=== PATIENT | female | born 1955 | race Caucasian/White ===

== ENCOUNTER 2017-07-30 17:15 | Observation (INO) | payer MEDICARE, SELFPAY ==
--- NOTE | 2017-07-30 17:38 | XR_ITS ---
XR chest portable CLINICAL INDICATION: Weakness, ischemia ITS.REASON: bilateral LE ischemia (medical clearance) ORDERING PHYSICIAN: Dougie Russell MD PATIENT AGE: 61 years COMPARISON: None FINDINGS: Unremarkable cardiovascular structures. There are minimal atelectatic changes in the right lung base. The lungs are otherwise clear. No acute bony anomalies. IMPRESSION: Minimal right basilar atelectasis or fibrosis otherwise negative
[2017-07-30 20:00] VITALS: PULSE 80
--- NOTE | 2017-07-30 22:11 | PC.NURSE ---
Aly Talbot RN notified of O2 sat @ 73%
[2017-07-31] VITALS (29 sets, daily range): BP systolic 123–184; BP diastolic 41–98; PULSE 80–100; RESP 12–20; TEMP 36.4–37.1; O2SAT 96–100; BMI 16.2
[2017-07-31 01:58] LABS: Activated Partial Thrombo Time 39.7 seconds (23.6-34.0)
--- NOTE | 2017-07-31 05:23 | PC.NURSE ---
ROXANN TRONCOSO PHONED AT 0200 WITH ORDER TO INCREASE DRIP TO 18ml/hr
--- NOTE | 2017-07-31 05:36 | PC.NURSE ---
MAKES NEEDS KNOWN, IS NOT OVERLY COOPERATIVE. REFUSES TO WEAR BP CUFF, REFUSED BATH, DID ALLOW TO BE CLIPPED IN PREPARATION FOR AMBAR CONSULT THIS AM WELL BEING NPO. RIGHT FOOT DORSALIS PEDIS PULSE NOT DETECTED BY DOPPLER, POSTERIOR TIBIAL PULSE IS AUDIBLE. LEFT FOOT DORSALIS PEDIS PULSE COULD BE FOUND BUT POSTERIOR DORSALIS PEDIS MORE AUDIBLE. PT C/O OF GREAT PAIN IN RIGHT FOOT WITH TOUCH OR MOVEMENT. DORSAL OF RIGHT FOOT LEADING UP TO GREAT TOE IS RED AND DARKENED COMPARED TO LEFT FOOT. REQUESTED PAIN PILL APPROX 0400 R/T PAIN IN MULTIPLE AREAS. REMAINED SAFE THIS SHIFT.
--- NOTE | 2017-07-31 07:08 | PC.NURSE ---
Not interested in pt portal. Brochure given
[2017-07-31 07:14] LABS: Basophils % 0.1 % (0.1-2.0); Eosinophils # 0.1 K/mm3 (0.0-0.4); Eosinophils % 0.7 % (0.1-12.0); Hematocrit 38.4 % (37.0-47.0); Hemoglobin 11.6 g/dL (12.2-16.2); Lymphocytes # 1.2 K/mm3 (0.7-4.5); Lymphocytes % 7.7 K/mm3 (10-50); Mean Corpuscular HGB Conc 30.2 g/dL (31.8-35.4); Mean Corpuscular Hemoglobin 31.8 pg (27.0-31.2); Mean Corpuscular Volume 105.2 fl (81-99); Mean Platelet Volume 9.5 fl (7.4-10.4); Monocytes # 0.7 K/mm3 (0.1-1.0); Monocytes % 4.4 % (1.7-9.3); Neutrophils # 14.1 K/mm3 (1.8-7.8); Platelet Count 296 K/mm3 (142-424); Red Blood Count 3.65 M/mm3 (4.20-5.40); Red Cell Distribution Width 13.3 % (11.5-17.5); White Blood Count 16.2 K/mm3 (4.8-10.8)
[2017-07-31 07:18] LABS: INR 0.95 (0.9-1.1); Prothrombin Time 10.3 seconds (9.4-11.8)
[2017-07-31 07:26] LABS: MANUAL DIFFERENTIAL MANUAL DIFFERENTIAL (MANUAL DIFF)
[2017-07-31 07:31] LABS: Alanine Aminotransferase 31 U/L (12-78); Albumin/Globulin Ratio 0.4 (1.1-1.8); Alkaline Phosphatase 209 U/L (46-116); Anion Gap 12.2 mEq/L (5-15); Aspartate Amino Transferase 23 U/L (15-37); Bilirubin,Total 0.1 mg/dL (0.2-1.0); Blood Urea Nitrogen 19 mg/dL (7-18); Calcium 10.1 mg/dL (8.5-10.1); Carbon Dioxide 23 mmol/L (21.0-32.0); Chloride 107 mmol/L (98-107); Creatinine Clearance Estimated 34 mg/ml (0-300); Creatinine,Serum 1.21 mg/dL (0.55-1.02); Estimated Glomerular Filt Rate 45 ml/min (>60); GFR (African American) 55 ML/MIN (>60); Globulin 4.6 gm/dl (1.3-3.2); Glucose 212 mg/dL (74-106); Potassium 3.2 mmoL/L (3.5-5.1); Sodium 139 mmol/L (136-145); Total Protein,Serum 6.6 gm/dL (6.4-8.2)
--- NOTE | 2017-07-31 09:00 | IR_ITS ---
PROCEDURE: 1. Left femoral arterial access 2. Catheter placement left femoral artery 3. Catheter placement in the abdominal aorta 4. Abdominal aortography 5. Angioplasty of the abdominal aorta 6. Angioplasty of the left common iliac artery 7. Angioplasty of the left external iliac artery 8. Stent deployment of the left external iliac artery and left common femoral artery INDICATION: 1. Limb threatening ischemia 2. Peripheral artery disease Informed consent was obtained prior to the procedure. COMPLICATIONS: None ESTIMATED BLOOD LOSS: Blood loss less than 10 cc. TECHNIQUE:1% lidocaine used to anesthetize the left femoral groin. The left femoral artery was accessed via the Seldinger technique. An advantage wire was used to push through the chronic occlusion of the proximal left femoral artery extending through the external iliac artery left common iliac artery and abdominal aorta. The pigtail catheter was advanced over the wire and abdominal aortography was performed. Following this 4000 units of heparin was administered intravenously. A 6 mm x 100 mm balloon was used to dilate the left external iliac artery pushed into the common iliac artery and then into the abdominal aorta. An additional balloon ruptured. A 6 mm x 40 mm balloon ruptured in the abdominal aorta at 12 milana. An additional 6 mm x 120 mm balloon was advanced proximal to the stents into the suprarenal abdominal aorta and inflated at 15 milana. The balloon was brought back into the left common and left external iliac artery. Repeat angiography demonstrated the severe stenosis distal to the left external iliac artery stent extending into the proximal portion of the left common femoral artery. A 4 mm x 30 mm bare-metal stent was deployed at 20 milana reducing the stenosis to 0%. This actually restored flow down the SFA and profunda femoris artery. The thrombus was aspirated from the left groin. The end the procedure the patient transferred the postop holding area in stable condition. Two ACTs were obtained during the procedure per nursing. ANGIOGRAPHIC RESULTS: The suprarenal abdominal aorta is normal. Stents are present from the infrarenal abdominal aorta extending into the bilateral common iliac arteries. The abdominal aortic stents appear to be mostly patent except an eccentric lesion on the left side of the infrarenal abdominal aorta. The right common iliac artery has an ostial proximal 70-80% stenosis and then opened into the main body of the common iliac artery. The right internal iliac artery is patent however the entire right external iliac artery and entire right common femoral artery is occluded. The entire left common external iliac artery is occluded within the stent. This occlusion extends into the proximal portion of the left common femoral artery. After the procedure the left common external iliac artery was widely patent as was the left common femoral artery extending into the proximal left SFA and left profunda femoris Impression: 1. Critical coronary disease as described above 2. Successful revascularization of the abdominal aorta the left common and left external iliac artery and the left common femoral artery. 100% occlusion reduced to 0% with multiple angioplasty procedures and 1 bare-metal stent Plan: 1. Tobacco cessation 2. Aspirin Plavix 3. Risk factor modification A should should be referred for hospice for pain management or perhaps to the pain management clinic. Patient is a small cachectic lady with limited life expectancy. Her left leg appear to be the most painful in this procedure produced excellent angiographic and hopefully clinical results
--- NOTE | 2017-07-31 09:11 | HMH.HP ---
*Admission Date: 07/30/17 *Chief complaint: chest pain *History of present illness: this wf was seen in the card clinic yesterday with chest pain and lower ext pain with dec pulse in lower ext and claudication and dec ambulation with rest pain and sx of art insuff lower ext - she has had pvd in past with stenting and continues to use tob - she was seen by card - no recent falls and no syncope [facility] History I have reviewed the patient's past medical history: Yes Medical History: Reports:: Chronic Obstructive Pulmonary Disease (COPD), Diabetes Mellitus Type 2, Gastroesophageal Reflux Disease Denies:: Cancer, Diabetes Mellitus Type 1, MRSA Other Medical History: Reports: Arthritis, Fibromyalgia, Thyroid Disease Other Surgeries: Yes: Angioplasty, Colostomy, Hysterectomy-Total, Other Amputation: No Fractures: No - *Social History Educational Level: Attended High School Smoking Status: Current every day smoker Tobacco Type: cigarettes # Packs/Day (cigarettes): 2 #Yrs smoked (if former smoker): 50 Alcohol Intake: never Substance Use Type: denies use Occupational Status: disabled Housing: house Household Members: none - Psychiatric History Expresses thoughts of harming self/others: None Suicide Plan Description: No Plan *Family Hx:: Diabetes Review of Systems - Review of Systems Review of systems:: pertinent systems reviewed and negative unless documented below - Constitutional Reports lack of energy, Reports weight loss - Eyes Denies change in vision Comments: s/p graves disease - ENT Denies nosebleed - *Cardiovascular Reports chest pain with activity - *Respiratory Reports shortness of breath, Denies cough - *Gastrointestinal Denies abdominal pain - *Neurologic Reports restless legs, Denies seizure-like activity - Psychiatric Denies thoughts of hurting/killing others - Endocrine Comments: has graves Meds Home Medications Medication Instructions Recorded Confirmed Type albuterol sulfate 0.63 mg/3 mL 0.63 mg INHALATION TID PRN ml 07/30/17 07/30/17 History solution for nebulization aripiprazole 2 mg tablet 2 mg PO QDAY 07/30/17 07/30/17 History gabapentin 300 mg capsule 300 mg PO TID 07/30/17 07/30/17 History levothyroxine 88 mcg tablet 88 mcg PO DAILY tab 07/30/17 07/30/17 History linagliptin 5 mg tablet 5 mg PO QDAY 07/30/17 07/30/17 History oxycodone-acetaminophen 10 mg-325 1 tab PO Q6H PRN tab 07/30/17 07/30/17 History mg tablet pantoprazole 40 mg tablet,delayed 40 mg PO QAM 07/30/17 07/30/17 History release promethazine 25 mg tablet 25 mg PO Q6H PRN 07/30/17 07/30/17 History Allergies Allergy/AdvReac Type Severity Reaction Status Date / Time morphine Allergy Mild Verified 07/30/17 08:07 Sulfa (Sulfonamide Allergy Unknown Verified 07/30/17 08:07 Antibiotics) codeine AdvReac Mild Makes her Verified 07/30/17 19:37 Hot pcn Allergy Unknown Uncoded 07/30/17 08:07 Exam Vital signs and Labs for Last 24 Hours: Temp Pulse 97.7 F 100 H 07/31/17 00:00 07/31/17 04:49 Short CBC 07/31/17 Range/Units 06:15 WBC 16.2 H (4.8-10.8) K/mm3 Hgb 11.6 L (12.2-16.2) g/dL Hct 38.4 (37.0-47.0) % Plt Count 296 (142-424) K/mm3 BMP 07/31/17 06:15 Sodium 139 Potassium 3.2 L Chloride 107 Carbon Dioxide 23 BUN 19 H Creatinine 1.21 H Glucose 212 H Calcium 10.1 Liver Function 07/31/17 Range/Units 06:15 Total Bilirubin 0.1 L (0.2-1.0) mg/dL AST 23 (15-37) U/L ALT 31 (12-78) U/L Alkaline Phosphatase 209 H (46-116) U/L Albumin 2.0 L (3.4-5.0) gm/dL I & O for Last 24 hours: Intake & Output 07/28/17 07/29/17 07/30/17 07/31/17 11:59 11:59 11:59 11:59 Intake Total 204 / 204 Output Total 1050 / 1050 Balance -846 / -846 no acute distress, thin - *Routine HEENT Exam Head: Present: normocephalic Eye: Present: PERRL, exophthalmos ENT: Present: mucous membranes dry - *Routin
--- NOTE | 2017-07-31 09:15 | P.HP_ITS ---
*Admission Date: 07/30/17 *Chief complaint: chest pain *History of present illness: this wf was seen in the card clinic yesterday with chest pain and lower ext pain with dec pulse in lower ext and claudication and dec ambulation with rest pain and sx of art insuff lower ext - she has had pvd in past with stenting and continues to use tob - she was seen by card - no recent falls and no syncope [facility] History I have reviewed the patient's past medical history: Yes Medical History: Reports:: Chronic Obstructive Pulmonary Disease (COPD), Diabetes Mellitus Type 2, Gastroesophageal Reflux Disease Denies:: Cancer, Diabetes Mellitus Type 1, MRSA Other Medical History: Reports: Arthritis, Fibromyalgia, Thyroid Disease Other Surgeries: Yes: Angioplasty, Colostomy, Hysterectomy-Total, Other Amputation: No Fractures: No - *Social History Educational Level: Attended High School Smoking Status: Current every day smoker Tobacco Type: cigarettes # Packs/Day (cigarettes): 2 #Yrs smoked (if former smoker): 50 Alcohol Intake: never Substance Use Type: denies use Occupational Status: disabled Housing: house Household Members: none - Psychiatric History Expresses thoughts of harming self/others: None Suicide Plan Description: No Plan *Family Hx:: Diabetes Review of Systems - Review of Systems Review of systems:: pertinent systems reviewed and negative unless documented below - Constitutional Reports lack of energy, Reports weight loss - Eyes Denies change in vision Comments: s/p graves disease - ENT Denies nosebleed - *Cardiovascular Reports chest pain with activity - *Respiratory Reports shortness of breath, Denies cough - *Gastrointestinal Denies abdominal pain - *Neurologic Reports restless legs, Denies seizure-like activity - Psychiatric Denies thoughts of hurting/killing others - Endocrine Comments: has graves Meds Home Medications Medication Instructions Recorded Confirmed Type albuterol sulfate 0.63 mg/3 mL 0.63 mg INHALATION TID PRN ml 07/30/17 07/30/17 History solution for nebulization aripiprazole 2 mg tablet 2 mg PO QDAY 07/30/17 07/30/17 History gabapentin 300 mg capsule 300 mg PO TID 07/30/17 07/30/17 History levothyroxine 88 mcg tablet 88 mcg PO DAILY tab 07/30/17 07/30/17 History linagliptin 5 mg tablet 5 mg PO QDAY 07/30/17 07/30/17 History oxycodone-acetaminophen 10 mg-325 1 tab PO Q6H PRN tab 07/30/17 07/30/17 History mg tablet pantoprazole 40 mg tablet,delayed 40 mg PO QAM 07/30/17 07/30/17 History release promethazine 25 mg tablet 25 mg PO Q6H PRN 07/30/17 07/30/17 History Allergies Allergy/AdvReac Type Severity Reaction Status Date / Time morphine Allergy Mild Verified 07/30/17 08:07 Sulfa (Sulfonamide Allergy Unknown Verified 07/30/17 08:07 Antibiotics) codeine AdvReac Mild Makes her Verified 07/30/17 19:37 Hot pcn Allergy Unknown Uncoded 07/30/17 08:07 Exam Vital signs and Labs for Last 24 Hours: Temp Pulse 97.7 F 100 H 07/31/17 00:00 07/31/17 04:49 Short CBC 07/31/17 Range/Units 06:15 WBC 16.2 H (4.8-10.8) K/mm3 Hgb 11.6 L (12.2-16.2) g/dL Hct 38.4 (37.0-47.0) % Plt Count 296 (142-424) K/mm3 BMP
[2017-07-31 09:29] LABS: Corrected White Blood Count 15.1 K/mm3 (4.8-10.8); Eosinophils % 2 % (0-3); Lymphocytes % 82 % (10-50); Monocytes % 4 % (2-9); Neutrophils % 12 % (42-76); Nucleated Red Blood Cells 7; Total Cells Counted 100
[2017-07-31 09:48] LABS: Macrocytosis 1+; Platelet Estimate Normal
--- NOTE | 2017-07-31 10:52 | SUR.PREOP ---
Pt arrived to [facility]lab [facility] in stable condition @ 1045 with cathlab staff via bed. cm shows nsr with vs 166/78, 95% SpO2, HR 95 and rr 24. additional IV started with 20g left FA without difficulty.
--- NOTE | 2017-07-31 16:10 | HMH.PHAVTE ---
[facility] Pharmacy VTE Monitoring - Patient Demographics Admission date: 07/30/17 Report Date: 07/31/17 Time: 16:10 Allergies/Adverse Reactions: morphine Allergy (Mild, Verified 07/30/17 08:07) Sulfa (Sulfonamide Antibiotics) Allergy (Unknown, Verified 07/30/17 08:07) codeine Adverse Reaction (Mild, Verified 07/30/17 19:37) Makes her Hot pcn Allergy (Unknown, Uncoded 07/30/17 08:07) Height: 1.65 m Weight: 44.197 kg Patient Problems: Current Active Problems Graves' disease with exophthalmos (Chronic) - VTE Risk Labs: VTE Related Lab Results Hgb 11.6 g/dL (12.2-16.2) L 07/31/17 06:15 Hct 38.4 % (37.0-47.0) 07/31/17 06:15 Plt Count 296 K/mm3 (142-424) 07/31/17 06:15 PT 10.3 seconds (9.4-11.8) 07/31/17 06:15 INR 0.95 (0.9-1.1) 07/31/17 06:15 APTT 39.7 seconds (23.6-34.0) H 07/31/17 01:30 BUN 19 mg/dL (7-18) H 07/31/17 06:15 Creatinine 1.21 mg/dL (0.55-1.02) H 07/31/17 06:15 Estimated Creat Clear 34 mg/ml (0-300) 07/31/17 06:15 Was VTE Risk Assessment Performed: Yes VTE Risk Level: Moderate Risk Clinical Trial Participant: No - Prophylaxis Types of VTE Prophylaxis: TEDS Knee High
[2017-07-31 16:15] LABS: CATHL Activated Clotting Time 207 SEC (74-125)
[2017-07-31 16:17] LABS: CATHL Activated Clotting Time 248 SEC (74-125)
[2017-07-31 16:18] LABS: CATHL Activated Clotting Time 116 SEC (74-125)
--- NOTE | 2017-07-31 16:42 | SUR.PHASEII ---
report to remi pan , patient transported to icu, vss at this time, no c/o pain.
[2017-08-01] VITALS: BP 153/52; PULSE 75; PULSE 91; RESP 18; TEMP 36.6; O2SAT 97
[2017-08-01 04:00] VITALS: PULSE 85
[2017-08-01 05:48] VITALS: BP 142/63; PULSE 95; RESP 16; TEMP 36.9; O2SAT 96
[2017-08-01 07:00] LABS: Hematocrit 35.3 % (37.0-47.0); Hemoglobin 10.5 g/dL (12.2-16.2)
[2017-08-01 08:00] VITALS: PULSE 70; PULSE 80
[2017-08-01 08:01] LABS: POC Glucose,Bedside 310 mg/dL
[2017-08-01 08:10] LABS: Creatinine Clearance Estimated 42 mg/ml (0-300); Creatinine,Serum 0.94 mg/dL (0.55-1.02); Estimated Glomerular Filt Rate > 60 ml/min (>60); GFR (African American) > 60 ML/MIN (>60)
[2017-08-01 08:12] VITALS: BP 167/73; PULSE 100; RESP 20; TEMP 36.8; O2SAT 96
--- NOTE | 2017-08-01 08:26 | HMH.ACPN ---
Internal Medicine - PN: Subj *Date: 08/01/17 *Time: 08:26 Exam Vital signs and Labs for Last 24 Hours: Temp Pulse Resp BP Pulse Ox 98.2 F 100 H 20 167/73 96 08/01/17 08:12 08/01/17 08:12 08/01/17 08:12 08/01/17 08:12 08/01/17 08:12 Short CBC 08/01/17 Range/Units 06:30 Hgb 10.5 L (12.2-16.2) g/dL Hct 35.3 L (37.0-47.0) % BMP 08/01/17 06:30 Creatinine 0.94 D I & O for Last 24 hours: Intake & Output 07/29/17 07/30/17 07/31/17 08/01/17 11:59 11:59 11:59 11:59 Intake Total 204 / 204 1000 / 1000 Output Total 1050 / 1050 4100 / 4100 Balance -846 / -846 -3100 / -3100 no acute distress - *Routine HEENT Exam Head: Present: normocephalic Eye: Present: PERRL ENT: Present: mucous membranes moist - *Routine Neck Exam Present: supple, full ROM - Routine Chest/Breast/Axilla Exam Chest wall: Present: pacemaker - *Routine Respiratory Exam Absent: accessory muscle use - *Routine Cardiovascular Exam Present: RRR, Normal S1, Normal S2 - *Routine Abdominal Exam Present: soft, normoactive bowel sounds - *Routine Extremities Exam Present: full ROM, tenderness, extremity cold to touch Comments: left toes blue and blanchable - Routine Back/Spine/Pelvis Exam Back/Spine: Present: full ROM - *Routine Skin Exam Present: intact, warm - *Routine Neurological Exam Present: alert, oriented X3 - Routine Psychiatric Exam Present: normal affect Assessment and Plan (1) Graves' disease with exophthalmos Current visit: Yes Status: Chronic Category: Medical Code(s): E05.00 - Thyrotoxicosis with diffuse goiter without thyrotoxic crisis or storm (2) Critical lower limb ischemia Problem details: bilateral lower limbs are purple in color and cool to touch, feet are tender with touch and pt states that she is a lot of pain for past week will admit pt for critical bilateral ischemic foot and start heparin drip today and plan for Heart cath tomorrow had a long discussion with pt and family about the need for admission and the risk and benefits of procedure and pt verbalize understanding and willing to proceed. she states that she was seen at [facility] and she was inst to stop her blood thinners. Current visit: No Status: Acute Category: Medical Code(s): I99.8 - Other disorder of circulatory system (3) Carotid artery stenosis Current visit: No Status: Chronic Qualifiers: Laterality: bilateral Qualified Code(s): I65.23 - Occlusion and stenosis of bilateral carotid arteries Category: Medical Code(s): I65.29 - Occlusion and stenosis of unspecified carotid artery (4) Diabetes Current visit: No Status: Chronic Qualifiers: Diabetes mellitus type: type 2 Category: Medical Code(s): E11.9 - Type 2 diabetes mellitus without complications (5) HHD (hypertensive heart disease) Current visit: No Status: Chronic Category: Medical Code(s): I11.9 - Hypertensive heart disease without heart failure (6) PAD (peripheral artery disease) Problem details: pt is in wheelchair today, and states that she has been in bed for past week Current visit: No Status: Chronic Category: Medical Code(s): I73.9 - Peripheral vascular disease, unspecified (7) Tobacco abuse Current visit: No Status: Chronic Category: Medical Code(s): Z72.0 - Tobacco use - Assessment and plan all Dx Assessment and Plan for all problems:: contiune care wait for cardiology for dc plan
--- NOTE | 2017-08-01 08:36 | HMH.CARDPN2 ---
Subjective PN (PG) Date: 08/01/17 Time: 08:30 Principal diagnosis: PAD Interval history: Pt with complaint of pain all over. Wants more pain meds. Relates she will keep smoking since, that's all I got left. No further intervention of PAD possible. Recommend hospice for pain control. PN Exam ([facility] Owned) Vital signs: Temp Pulse Resp BP Pulse Ox 98.2 F 100 H 20 167/73 96 08/01/17 08:12 08/01/17 08:12 08/01/17 08:12 08/01/17 08:12 08/01/17 08:12 - Constitutional mild distress, thin, cachectic - Routine Respiratory Exam Present: diminished air movement - Routine Cardiovascular Exam Present: RRR - Routine Extremities Exam Comments: Legs mottled. Right warmer than left with weak but palpable pulses. Pt winces when touching legs. No edema. - Routine Neurological Exam Present: alert, oriented X3 A/P Progress Note ([facility] Owned) (1) Critical lower limb ischemia Problem details: bilateral lower limbs are purple in color and cool to touch, feet are tender with touch and pt states that she is a lot of pain for past week will admit pt for critical bilateral ischemic foot and start heparin drip today and plan for Heart cath tomorrow had a long discussion with pt and family about the need for admission and the risk and benefits of procedure and pt verbalize understanding and willing to proceed. she states that she was seen at [facility] and she was inst to stop her blood thinners. Status: Acute Assessment and plan: Unable to open right leg but some improved blood flow with intervention of aorta. Some intervention of the left leg with improved blood flow. No possible further intervention. Recommend hospice for pain control (2) PAD (peripheral artery disease) Problem details: pt is in wheelchair today, and states that she has been in bed for past week Status: Chronic (3) Tobacco abuse Status: Chronic (4) Graves' disease with exophthalmos Status: Chronic (5) Carotid artery stenosis Status: Chronic (6) Diabetes Status: Chronic (7) HHD (hypertensive heart disease) Status: Chronic - Time Spent With Patient less than 15 minutes
--- NOTE | 2017-08-01 08:39 | P.PN_ITS ---
Subjective PN (PG) Date: 08/01/17 Time: 08:30 Principal diagnosis: PAD Interval history: Pt with complaint of pain all over. Wants more pain meds. Relates she will keep smoking since, that's all I got left. No further intervention of PAD possible. Recommend hospice for pain control. PN Exam ([facility] Owned) Vital signs: Temp Pulse Resp BP Pulse Ox 98.2 F 100 H 20 167/73 96 08/01/17 08:12 08/01/17 08:12 08/01/17 08:12 08/01/17 08:12 08/01/17 08:12 - Constitutional mild distress, thin, cachectic - Routine Respiratory Exam Present: diminished air movement - Routine Cardiovascular Exam Present: RRR - Routine Extremities Exam Comments: Legs mottled. Right warmer than left with weak but palpable pulses. Pt winces when touching legs. No edema. - Routine Neurological Exam Present: alert, oriented X3 A/P Progress Note ([facility] Owned) (1) Critical lower limb ischemia Problem details: bilateral lower limbs are purple in color and cool to touch, feet are tender with touch and pt states that she is a lot of pain for past week will admit pt for critical bilateral ischemic foot and start heparin drip today and plan for Heart cath tomorrow had a long discussion with pt and family about the need for admission and the risk and benefits of procedure and pt verbalize understanding and willing to proceed. she states that she was seen at [facility] and she was inst to stop her blood thinners. Status: Acute Assessment and plan: Unable to open right leg but some improved blood flow with intervention of aorta. Some intervention of the left leg with improved blood flow. No possible further intervention. Recommend hospice for pain control (2) PAD (peripheral artery disease) Problem details: pt is in wheelchair today, and states that she has been in bed for past week Status: Chronic (3) Tobacco abuse Status: Chronic (4) Graves' disease with exophthalmos Status: Chronic (5) Carotid artery stenosis Status: Chronic (6) Diabetes Status: Chronic (7) HHD (hypertensive heart disease) Status: Chronic - Time Spent With Patient less than 15 minutes
[2017-08-01 12:24] VITALS: BP 111/93; PULSE 88; RESP 18; TEMP 35.9; O2SAT 98
--- NOTE | 2017-08-01 12:42 | HMH.DCSUM ---
General - General Admission date: 07/30/17 Discharge date: 08/01/17 HPI HPI: this wf was seen in the card clinic yesterday with chest pain and lower ext pain with dec pulse in lower ext and claudication and dec ambulation with rest pain and sx of art insuff lower ext - she has had pvd in past with stenting and continues to use tob - she was seen by card - no recent falls and no syncope Objective Vital signs: Temp Pulse Resp BP Pulse Ox 96.6 F L 88 18 111/93 98 08/01/17 12:24 08/01/17 12:24 08/01/17 12:24 08/01/17 12:24 08/01/17 12:24 no acute distress - *Routine HEENT Exam Head: Present: normocephalic Eye: Present: PERRL ENT: Present: mucous membranes moist - *Routine Neck Exam Present: supple, full ROM - *Routine Respiratory Exam Present: CTA bilaterally - *Routine Cardiovascular Exam Present: RRR - *Routine Abdominal Exam Present: soft, normoactive bowel sounds - *Routine Skin Exam Comments: left toes blue in color - Detailed Lower Extremity Exam Leg image: 1 - blue abd blachable 2 - blue and blanchable slight better than left Hospital Course Hospital Course: Unable to open right leg but some improved blood flow with intervention of aorta. Some intervention of the left leg with improved blood flow. No possible further intervention. Recommend hospice for pain control.Pt with complaints of pain all over. Wants more pain meds. Relates she will keep smoking since, that's all I got left. No further intervention of PAD possible. Recommend hospice for pain control. Results Labs on day of discharge: Labs from last 24 hours 08/01/17 08/01/17 07/31/17 06:30 06:30 14:24 Hgb 10.5 L Hct 35.3 L Activated Clotting Time 116 D Creatinine 0.94 D Estimated Creat Clear 42 Estimated GFR > 60 Est GFR ( Amer) > 60 POC Glucose 07/31/17 07/31/17 07/31/17 14:08 13:50 01:36 Hgb Hct Activated Clotting Time 248 H* 207 H* Creatinine Estimated Creat Clear Estimated GFR Est GFR ( Amer) POC Glucose 310 DS: Diagnosis - Discharge Diagnosis (1) Graves' disease with exophthalmos Status: Chronic (2) Critical lower limb ischemia Status: Acute Problem details: bilateral lower limbs are purple in color and cool to touch, feet are tender with touch and pt states that she is a lot of pain for past week will admit pt for critical bilateral ischemic foot and start heparin drip today and plan for Heart cath tomorrow had a long discussion with pt and family about the need for admission and the risk and benefits of procedure and pt verbalize understanding and willing to proceed. she states that she was seen at [facility] and she was inst to stop her blood thinners. (3) Carotid artery stenosis Status: Chronic (4) Diabetes Status: Chronic (5) HHD (hypertensive heart disease) Status: Chronic (6) PAD (peripheral artery disease) Status: Chronic Problem details: pt is in wheelchair today, and states that she has been in bed for past week (7) Tobacco abuse Status: Chronic Meds Home Medications Medication Instructions Recorded Confirmed Type albuterol sulfate 0.63 mg/3 mL 0.63 mg INHALATION TID PRN ml 07/30/17 07/30/17 History solution for nebulization aripiprazole 2 mg tablet 2 mg PO QDAY 07/30/17 07/30/17 History gabapentin 300 mg capsule 300 mg PO TID 07/30/17 07/30/17 History levothyroxine 88 mcg tablet 88 mcg PO DAILY tab 07/30/17 07/30/17 History linagliptin 5 mg tablet 5 mg PO QDAY 07/30/17 07/30/17 History oxycodone-acetaminophen 10 mg-325 1 tab PO Q6H PRN tab 07/30/17 07/30/17 History mg tablet pantoprazole 40 mg tablet,delayed 40 mg PO QAM 07/30/17 07/30/17 History release promethazine 25 mg tablet 25 mg PO Q6H PRN 07/30/17 07/30/17 History Allergies Allergy/AdvR
--- NOTE | 2017-08-01 14:11 | SW/DCPLANNER ---
Received referral regarding Hospice care for this patient for pain control. After lengthy conversation with patient and patients family they have agreed to me faxing patient information to [facility]. I have called and spoke with Zabrina to inform her that I am faxing her a referral and patient will be discharging home this afternoon. I will follow up with family once I hear back from Hospice. [facility] Phone #: [phone] Fax #: [phone] Clau (Patients daughter): [phone] Patients cell phone #: [phone]
--- NOTE | 2017-08-02 11:23 | SW/DCPLANNER ---
Addendum entered by Kimmy Brar 08/02/17 15:27: Patient has refused Hospice services per Zabrina at [facility] in [facility]. Original Note: Patient discharged home yesterday 08/01/17. I have spoke with Zabrina from Hospice in [facility] and she has stated that a nurse is out to see this patient right now. Hospice will follow up regarding admission.
--- NOTE | 2017-08-15 10:35 | PC.NURSE ---
post procedure call made, pt states she can't walk and is going to see family doctor today. denies any questions/concerns
== END 2017-08-01 15:35 | disposition home or self-care (01) ==
PROVIDERS: Physician Assistant; Admitting Provider Emergency Medicine; Family Provider Internal Medicine; PCP Family Medicine; Visit Provider Emergency Medicine
DX: I70.223 Atherosclerosis of native arteries of extremities with rest pain, bilateral legs (principal); I99.8 Other disorder of circulatory system; I25.10 Atherosclerotic heart disease of native coronary artery without angina pectoris; Z72.0 Tobacco use; I74.5 Embolism and thrombosis of iliac artery; I70.213 Atherosclerosis of native arteries of extremities with intermittent claudication, bilateral legs; E11.51 Type 2 diabetes mellitus with diabetic peripheral angiopathy without gangrene; I11.9 Hypertensive heart disease without heart failure; I65.23 Occlusion and stenosis of bilateral carotid arteries; J44.9 Chronic obstructive pulmonary disease, unspecified
CPT/HCPCS: 36200; 36415; 37220; 37226; 37246; 71045; 80053; 82565; 82962; 84443; 85007; 85014; 85018; 85025; 85347; 85610; 85730; 93005; 99152; 99153; C1725; C1769; C1894; G0378; J1644; J2405; J2720; Q9966